=== PATIENT | female | born 1955 | race Caucasian/White ===

== ENCOUNTER 2017-06-13 10:31 | Outpatient (CLI) | payer OTHER | END 2017-06-13 10:32 | disposition home or self-care (01) | LOC: BICCT 10:31 | PROVIDERS: ATTEND Family Medicine | DX: R10.9 Unspecified abdominal pain (principal); K57.90 Diverticulosis of intestine, part unspecified, without perforation or abscess without bleeding | CPT/HCPCS: 74176 ==

== ENCOUNTER 2017-10-25 14:27 | Outpatient (CLI) | payer OTHER | END 2017-10-25 14:28 | disposition home or self-care (01) | LOC: BICMAMMO 14:27 | PROVIDERS: ATTEND Family Medicine | DX: Z12.31 Encounter for screening mammogram for malignant neoplasm of breast (principal) | CPT/HCPCS: 77063; 77067 ==

== ENCOUNTER 2018-05-19 08:51 | Outpatient (CLI) | payer OTHER ==
--- NOTE | 2018-05-19 10:34 | BD ---
DEXA BONE DENSITY: Comparison: None. History: Osteoporosis in a 62-year-old post-menopausal female. Lumbar Spine: BMD (g/cm2) L1 0.768 T-Score: -2.0 L2 0.788 T-Score: -2.2 L3 0.809 T-Score: -2.5 L4 0.862 T-Score: -1.8 L1-L4 0.810 T-Score: -2.2 Femoral Neck: 0.756 T-Score: -0.8 Total Femur: 0.823 T-Score: -0.9 Impression: Osteopenia. This patient has a 10-year WHO fracture of a major osteoporotic fracture of 7.8% and hip fracture 0.5%. POS: [facility]
== END 2018-05-19 08:52 | disposition home or self-care (01) ==
LOC: BICMAMMO 08:51
PROVIDERS: ATTEND Internal Medicine Rheumatology
DX: Z13.820 Encounter for screening for osteoporosis (principal); M81.0 Age-related osteoporosis without current pathological fracture; M85.88 Other specified disorders of bone density and structure, other site
CPT/HCPCS: 77080

== ENCOUNTER 2018-10-26 07:59 | Outpatient (CLI) | payer MEDICARE, OTHER ==
--- NOTE | 2018-10-26 09:18 | MMO ---
Bilateral MAMMO Bilat Screen [facility]. CLINICAL HISTORY: Patient is 63 years old and is seen for screening. The patient has the following family history of breast cancer: grandmother. The patient has no personal history of cancer. VIEWS: The views performed were: bilateral craniocaudal with tomosynthesis; bilateral mediolateral oblique with tomosynthesis; and bilateral exaggerated craniocaudal. FILMS COMPARED: The present examination has been compared to a prior imaging study performed at [facility] on 10/25/2017. MAMMOGRAM FINDINGS: The breasts are heterogeneously dense, which could obscure a lesion on mammography. Finding 1: There are stable benign appearing calcifications seen in both breasts. Finding 2: There is a stable biopsy clip seen in the right breast. Finding 3: There is a new global asymmetry seen in the upper-outer region of the left breast. IMPRESSION: FINDING 1: STABLE CALCIFICATIONS IN BOTH BREASTS ARE BENIGN. FINDING 2: STABLE BIOPSY CLIP IN THE RIGHT BREAST IS BENIGN. FINDING 3: NEW GLOBAL ASYMMETRY IN THE LEFT BREAST REQUIRES ADDITIONAL EVALUATION. ADDITIONAL PROJECTIONS (LEFT CRANIOCAUDAL SPOT COMPRESSION; LEFT MEDIOLATERAL OBLIQUE SPOT COMPRESSION; AND LEFT MEDIOLATERAL) ARE RECOMMENDED. AN ULTRASOUND EXAM IS RECOMMENDED IF NEEDED. ADDITIONAL IMAGING. THE RESULTS OF THIS EXAM WERE SENT TO THE PATIENT. ACR BI-RADS Category 0 - Incomplete: Need additional imaging evaluation. [facility] will notify the patient of the need for additional imaging services. MAMMOGRAPHY NOTE: 1. A negative mammogram report should not delay a biopsy if a dominant of clinically suspicious mass is present. 2. Approximately 10% to 15% of breast cancers are not detected by mammography. 3. Adenosis and dense breasts may obscure an underlying neoplasm.
== END 2018-10-26 08:00 | disposition home or self-care (01) ==
LOC: BICMAMMO 07:59
PROVIDERS: ATTEND Family Medicine
DX: Z12.31 Encounter for screening mammogram for malignant neoplasm of breast (principal); R92.0 Mammographic microcalcification found on diagnostic imaging of breast
CPT/HCPCS: 77063; 77067

== ENCOUNTER 2018-10-30 09:24 | Outpatient (CLI) | payer MEDICARE, OTHER ==
--- NOTE | 2018-10-30 14:18 | MMO ---
Left Breast MAMMO Unilat Diag [facility]ALK[facility]. CLINICAL HISTORY: Patient is 63 years old and is seen for additional evaluation requested at current screening. The patient has the following family history of breast cancer: grandmother. The patient has no personal history of cancer. VIEWS: The views performed were: left craniocaudal spot compression with tomosynthesis; left mediolateral oblique spot compression with tomosynthesis; and left mediolateral with tomosynthesis. FILMS COMPARED: The present examination has been compared to prior imaging studies performed at [facility] on 10/25/2017, 10/26/2018 and 10/30/2018. MAMMOGRAM FINDINGS: The breast is heterogeneously dense, which could obscure a lesion on mammography. There is a focal asymmetry seen in the upper-outer region of the left breast. Similar new scattered densities are present in both breasts, and the patient provides a history of hormone replacement therapy commencing in the interval since prior mammograms. Sonography of the region of mammographic concern in the left breast is normal. IMPRESSION: FOCAL ASYMMETRY IN THE LEFT BREAST IS PROBABLY BENIGN. FOLLOW-UP IN 6 MONTHS IS RECOMMENDED. THE RESULTS OF THIS EXAM WERE SENT TO THE PATIENT. ACR BI-RADS Category 3 - Probably benign finding - short interval follow-up suggested. [facility] will notify the patient of the need for additional imaging services. MAMMOGRAPHY NOTE: 1. A negative mammogram report should not delay a biopsy if a dominant of clinically suspicious mass is present. 2. Approximately 10% to 15% of breast cancers are not detected by mammography. 3. Adenosis and dense breasts may obscure an underlying neoplasm.
--- NOTE | 2018-10-30 14:41 | ULT ---
LIMITED LEFT BREAST ULTRASOUND: DATE: 10/30/2018. PROVIDED CLINICAL HISTORY: Abnormal mammogram. FINDINGS: Limited sonographic interrogation was performed of the left breast including in the presence of inter preting radiologist real-time from the 11:00 to 3:00 positions. No sonographic abnormality is eviden t in the region of mammographic concern. IMPRESSION: BIRADS category 3 - probably benign findings. Followup diagnostic left mammogram recommended in 6 mo nths. POS: OFF
== END 2018-10-30 09:25 | disposition home or self-care (01) ==
LOC: BICMAMMO 09:24
PROVIDERS: ATTEND Family Medicine
DX: R92.2 Inconclusive mammogram (principal); N64.89 Other specified disorders of breast; Z80.3 Family history of malignant neoplasm of breast
CPT/HCPCS: 76642; 77065; G0279

== ENCOUNTER 2019-05-01 08:48 | Outpatient (CLI) | payer MEDICARE, OTHER ==
--- NOTE | 2019-05-01 09:19 | MMO ---
Left Breast MAMMO Unilat Diag [facility]. CLINICAL HISTORY: Patient is 63 years old and is seen for follow-up at short-interval from prior study. The patient has the following family history of breast cancer: maternal grandmother, malignant (generic). The patient has no personal history of cancer. VIEWS: The views performed were: left craniocaudal with tomosynthesis; left mediolateral oblique with tomosynthesis; and left mediolateral with tomosynthesis. FILMS COMPARED: The present examination has been compared to prior imaging studies performed at [facility] on 10/25/2017, 10/26/2018 and 10/30/2018. This study has been interpreted with the assistance of computer-aided detection. MAMMOGRAM FINDINGS: The breast is heterogeneously dense, which could obscure a lesion on mammography. There is a stable focal asymmetry seen in the left breast. IMPRESSION: STABLE FOCAL ASYMMETRY IN THE LEFT BREAST IS PROBABLY BENIGN. FOLLOW-UP IN 6 MONTHS IS RECOMMENDED. THE RESULTS OF THIS EXAM WERE SENT TO THE PATIENT. ACR BI-RADS Category 3 - Probably benign finding - short interval follow-up suggested. [facility] will notify the patient of the need for additional imaging services. MAMMOGRAPHY NOTE: 1. A negative mammogram report should not delay a biopsy if a dominant of clinically suspicious mass is present. 2. Approximately 10% to 15% of breast cancers are not detected by mammography. 3. Adenosis and dense breasts may obscure an underlying neoplasm. Reported by: ANGEL WILBURN MD Electonically Signed: [id number]
== END 2019-05-01 08:49 | disposition home or self-care (01) ==
LOC: BICMAMMO 08:48
PROVIDERS: ATTEND Family Medicine
DX: R92.8 Other abnormal and inconclusive findings on diagnostic imaging of breast (principal); N64.89 Other specified disorders of breast
CPT/HCPCS: 77065; G0279

== ENCOUNTER 2019-10-19 08:43 | Outpatient (CLI) | payer MEDICARE ==
--- NOTE | 2019-10-19 09:17 | MMO ---
Bilateral MAMMO Bilat Diag [facility]. CLINICAL HISTORY: Patient is 64 years old and is seen for diagnostic exam. The patient has the following family history of breast cancer: maternal grandmother, malignant (generic). The patient has no personal history of cancer. VIEWS: The views performed were: bilateral craniocaudal with tomosynthesis; bilateral mediolateral oblique with tomosynthesis; and bilateral mediolateral with tomosynthesis. FILMS COMPARED: The present examination has been compared to prior imaging studies performed at [facility] on 10/26/2018, 10/30/2018 and 05/01/2019. This study has been interpreted with the assistance of computer-aided detection. MAMMOGRAM FINDINGS: The breasts are heterogeneously dense, which could obscure a lesion on mammography. Finding 1: There are stable benign appearing calcifications seen in both breasts. Finding 2: There are stable benign appearing densities seen in both breasts. There are no suspicious masses, suspicious calcifications, or new areas of architectural distortion. IMPRESSION: THERE IS NO MAMMOGRAPHIC EVIDENCE OF MALIGNANCY. A ROUTINE FOLLOW-UP MAMMOGRAM IN 1 YEAR IS RECOMMENDED. THE RESULTS OF THIS EXAM WERE SENT TO THE PATIENT. ACR BI-RADS Category 2 - Benign finding MAMMOGRAPHY NOTE: 1. A negative mammogram report should not delay a biopsy if a dominant of clinically suspicious mass is present. 2. Approximately 10% to 15% of breast cancers are not detected by mammography. 3. Adenosis and dense breasts may obscure an underlying neoplasm. Reported by: KATHERYN REYNOLDS MD Electonically Signed: [id number]
== END 2019-10-19 08:44 | disposition home or self-care (01) ==
LOC: BICMAMMO 08:43
PROVIDERS: ATTEND Family Medicine
DX: R92.8 Other abnormal and inconclusive findings on diagnostic imaging of breast (principal)
CPT/HCPCS: 77066; G0279

== ENCOUNTER 2020-10-21 08:58 | Outpatient (CLI) | payer MEDICARE | END 2020-10-21 08:59 | disposition home or self-care (01) | LOC: BICMAMMO 08:58 | PROVIDERS: ATTEND Family Medicine | DX: Z12.31 Encounter for screening mammogram for malignant neoplasm of breast (principal) | CPT/HCPCS: 77063; 77067 ==

== ENCOUNTER 2021-10-23 09:57 | Outpatient (CLI) | payer MEDICARE | END 2021-10-23 09:58 | disposition home or self-care (01) | LOC: BICMAMMO 09:57 | PROVIDERS: ATTEND Family Medicine | DX: Z12.31 Encounter for screening mammogram for malignant neoplasm of breast (principal); Z80.3 Family history of malignant neoplasm of breast | CPT/HCPCS: 77063; 77067 ==

== ENCOUNTER 2022-07-29 12:19 | Outpatient (CLI) | payer MEDICARE | END 2022-07-29 12:20 | disposition home or self-care (01) | LOC: BICCT 12:19 | PROVIDERS: ATTEND Family Medicine | DX: R91.1 Solitary pulmonary nodule (principal); J40 Bronchitis, not specified as acute or chronic; S22.42XA Multiple fractures of ribs, left side, initial encounter for closed fracture | CPT/HCPCS: 71250 ==

== ENCOUNTER 2022-09-22 10:27 | Inpatient (IN) | payer MEDICARE ==
[~2022-09-22 10:27] MED LIST: Iopamidol 370 76% 100 ML VIAL ONE
[2022-09-22] MEDS ORDERED: Ondansetron ODT 4 MG TAB PO PRN (12:02)
[2022-09-22] MEDS ORDERED: Ipratropium/Albuterol 3 ML NEB NEB PRN (12:02)
[2022-09-22] MEDS ORDERED: Ondansetron PF 4 MG/2 ML Vial IVP PRN (12:02)
[2022-09-22] MEDS ORDERED: Senokot S 8.6-50 MG TAB PO PRN (12:02)
[2022-09-22] MEDS ORDERED: Calcium Carbonate 500 MG ChewTAB PO PRN (12:02)
[2022-09-22] MEDS ORDERED: Acetaminophen 325 MG TAB PO PRN (12:02)
[2022-09-22 13:55] VITALS: BMI 24.7
[2022-09-22 14:26] LABS: #Lymphocytes 0.8 thou/uL (1.20-3.40); #Monocytes 0.8 thou/uL (0.11-0.59); #Neutrophils 4.9 thou/uL (1.40-6.50); %Basophils 0.2 % (0.0-1.0); %Eosinophils 0.4 % (0.0-10.0); %Lymphocytes 12.3 % (21.0-51.0); %Monocytes 11.6 % (0.0-10.0); %Neutrophils 75.6 % (42.0-75.0); Mean Corpuscular HGB CONC 35.1 g/dL (32.0-36.0); Mean Corpuscular Hemoglobin 36.1 pg (27.0-31.0); Mean Platelet Volume 6.5 fL (7.4-10.4); Platelet Count 262 10x3/uL (130-400); RBC Distribution Width 11.4 % (11.5-14.5); Red Blood Cell (RBC) Count 4.15 mill/uL (4.20-5.40); White Blood Cell (WBC) Count 6.5 10x3/uL (4.8-10.8)
[2022-09-22 14:38] LABS: INR-International Normal Ratio 0.9; Prothrombin Time 12.3 sec (12.0-14.7)
[2022-09-22 14:39] LABS: PTT 28.3 sec (22.9-36.1)
[2022-09-22 14:43] LABS: ALT (SGPT) 24 U/L (8-55); AST (SGOT) 21 U/L (5-34); Alkaline Phosphatase 32 U/L (40-110); Anion Gap 15 mmol/L (10-20); BUN (Urea Nitrogen) 9 mg/dL (9.8-20.1); Bilirubin, Total 0.4 mg/dL (0.2-1.2); CRP (Inflammatory) Less than 0.50 mg/dL (= or < 0.5); Calc. Creatinine Clearance 75 mL/min (70-130); Calcium 8.7 mg/dL (7.8-10.44); Carbon Dioxide 23 mmol/L (23-31); Chloride 91 mmol/L (98-107); Estimated GFR 94; Globulin 2.3 g/dL (2.4-3.5); Glucose 100 mg/dL (80-115); Magnesium 1.7 mg/dL (1.6-2.6); Potassium 4.2 mmol/L (3.5-5.1); Protein, Total 6.3 g/dL (5.8-8.1); Sodium 125 mmol/L (136-145)
[2022-09-22 14:48] LABS: Troponin I 0.012 ng/mL (< 0.028)
[2022-09-22] MEDS: Cefepime 2 GM in Sodium Chloride 0.9% 100 ML IVPB SCH (15:00)
[2022-09-22] MEDS ORDERED: Magnesium 2 GM/50 ML(in water) 2 GM in Premix Bag 1 BAG IVPB SCH (15:00)
[2022-09-22] MEDS ORDERED: hydrALAZINE 25 MG TAB PO PRN (15:16)
[2022-09-22] MEDS: methylPREDNISolone Sod Succ 40 MG VIAL IVP SCH ×2 (15:36→20:53)
[2022-09-22] MEDS: Ipratropium/Albuterol 3 ML NEB NEB SCH ×3 (16:02→22:24)
[2022-09-22 16:46] LABS: SARS-CoV-2 NAA Rapid Test Not Detected (NotDetected)
[2022-09-22] MEDS ORDERED: Electrolyte Replacement Protocol FS SCH (17:45)
[2022-09-22] MEDS: Mometasone/Formoterol 200/5 60 PUFF INH SCH (19:00)
[2022-09-22] MEDS: guaiFENesin ER 600 MG TAB PO SCH (20:52)
[2022-09-22] MEDS: Doxycycline 100 MG CAP PO SCH (20:52)
[2022-09-22] MEDS ORDERED: Famotidine 20 MG TAB PO SCH (21:00)
[2022-09-23] MEDS: Cefepime 2 GM in Sodium Chloride 0.9% 100 ML IVPB SCH (02:37)
[2022-09-23] MEDS: methylPREDNISolone Sod Succ 40 MG VIAL IVP SCH ×4 (02:37→17:31)
[2022-09-23] MEDS: Ipratropium/Albuterol 3 ML NEB NEB SCH ×6 (03:07→22:49)
[2022-09-23 07:04] LABS: #Neutrophils 4.6 thou/uL (1.40-6.50); %Eosinophils 0.1 % (0.0-10.0); %Lymphocytes 9.8 % (21.0-51.0); %Monocytes 2.4 % (0.0-10.0); %Neutrophils 87.7 % (42.0-75.0); Hemoglobin 15.6 g/dL (12.0-16.0); Mean Corpuscular HGB CONC 35.3 g/dL (32.0-36.0); Mean Corpuscular Hemoglobin 36.9 pg (27.0-31.0); Mean Platelet Volume 6.5 fL (7.4-10.4); Platelet Count 263 10x3/uL (130-400); RBC Distribution Width 11.6 % (11.5-14.5); Red Blood Cell (RBC) Count 4.22 mill/uL (4.20-5.40); White Blood Cell (WBC) Count 5.2 10x3/uL (4.8-10.8)
[2022-09-23 07:05] LABS: #Lymphocytes 0.5 thou/uL (1.20-3.40); #Monocytes 0.1 thou/uL (0.11-0.59)
[2022-09-23 07:14] LABS: Anion Gap 18 mmol/L (10-20); BUN (Urea Nitrogen) 10 mg/dL (9.8-20.1); Calc. Creatinine Clearance 71 mL/min (70-130); Calcium 8.7 mg/dL (7.8-10.44); Carbon Dioxide 21 mmol/L (23-31); Chloride 96 mmol/L (98-107); Estimated GFR 90; Glucose 183 mg/dL (80-115); Magnesium 2.1 mg/dL (1.6-2.6); Sodium 130 mmol/L (136-145)
[2022-09-23] MEDS: Mometasone/Formoterol 200/5 60 PUFF INH SCH ×2 (07:19→19:31)
[2022-09-23] MEDS ORDERED: Multivit, Therapeutic 1 TAB PO SCH (09:00)
[2022-09-23] MEDS ORDERED: Folic Acid 1 MG TAB PO SCH (09:00)
[2022-09-23] MEDS ORDERED: Cyanocobalamin (Vitamin B-12) 1,000 MCG TAB PO SCH (09:00)
[2022-09-23] MEDS ORDERED: Thiamine 100 MG TAB PO SCH (09:00)
[2022-09-23] MEDS ORDERED: Acetaminophen 325 MG TAB PO PRN (09:58)
[2022-09-23] MEDS ORDERED: Calcium Carbonate 500 MG ChewTAB PO PRN (09:58)
[2022-09-23] MEDS ORDERED: hydrALAZINE 25 MG TAB PO PRN (10:00)
[2022-09-23] MEDS ORDERED: Ondansetron PF 4 MG/2 ML Vial IVP PRN (10:02)
[2022-09-23] MEDS ORDERED: Senokot S 8.6-50 MG TAB PO PRN (10:03)
[2022-09-23] MEDS ORDERED: Ondansetron ODT 4 MG TAB PO PRN (10:03)
[2022-09-23] MEDS ORDERED: Ipratropium/Albuterol 3 ML NEB NEB SCH (10:30)
[2022-09-23] MEDS: guaiFENesin ER 600 MG TAB PO SCH ×3 (10:32→20:46)
[2022-09-23] MEDS: Cyanocobalamin (Vitamin B-12) 1,000 MCG TAB PO SCH (10:32)
[2022-09-23] MEDS: Thiamine 100 MG TAB PO SCH (10:32)
[2022-09-23] MEDS: Multivit, Therapeutic 1 TAB PO SCH (10:32)
[2022-09-23] MEDS: Folic Acid 1 MG TAB PO SCH (10:32)
[2022-09-23] MEDS: Doxycycline 100 MG CAP PO SCH ×3 (11:13→20:46)
[2022-09-23] MEDS ORDERED: Montelukast Sodium 10 mg Tablet PO SCH (21:00)
[2022-09-24] MEDS: methylPREDNISolone Sod Succ 40 MG VIAL IVP SCH ×2 (00:20→05:34)
[2022-09-24] MEDS: Ipratropium/Albuterol 3 ML NEB NEB SCH ×3 (02:22→11:04)
[2022-09-24] MEDS ORDERED: Thyroid 30 MG TAB PO SCH (06:00)
[2022-09-24] MEDS: Mometasone/Formoterol 200/5 60 PUFF INH SCH (07:02)
[2022-09-24 07:18] LABS: Anion Gap 15 mmol/L (10-20); BUN (Urea Nitrogen) 16 mg/dL (9.8-20.1); Calc. Creatinine Clearance 74 mL/min (70-130); Calcium 9.2 mg/dL (7.8-10.44); Carbon Dioxide 22 mmol/L (23-31); Chloride 95 mmol/L (98-107); Estimated GFR 94; Glucose 148 mg/dL (80-115); Potassium 4.4 mmol/L (3.5-5.1); Sodium 128 mmol/L (136-145)
[2022-09-24 08:07] VITALS: BP 126/76; TEMP 97.7
[2022-09-24] MEDS ORDERED: Escitalopram Oxalate 10 mg Tablet PO SCH (09:00)
[2022-09-24] MEDS: Doxycycline 100 MG CAP PO SCH (09:10)
[2022-09-24] MEDS: Thiamine 100 MG TAB PO SCH (09:10)
[2022-09-24] MEDS: guaiFENesin ER 600 MG TAB PO SCH (09:11)
[2022-09-24] MEDS: Folic Acid 1 MG TAB PO SCH (09:11)
[2022-09-24] MEDS: Cyanocobalamin (Vitamin B-12) 1,000 MCG TAB PO SCH (09:11)
[2022-09-24] MEDS: Multivit, Therapeutic 1 TAB PO SCH (09:11)
== END 2022-09-24 12:23 | disposition home or self-care (01) | DRG 202 ==
LOC: UNDOADMIN 10:27 → T4-A 10:27 → T4-B 12:00
PROVIDERS: ADMIT Internal Medicine; ATTEND Internal Medicine
DX: J45.901 Unspecified asthma with (acute) exacerbation (principal); E87.1 Hypo-osmolality and hyponatremia; J44.1 Chronic obstructive pulmonary disease with (acute) exacerbation; Z20.822 Contact with and (suspected) exposure to COVID-19; E03.9 Hypothyroidism, unspecified; F17.210 Nicotine dependence, cigarettes, uncomplicated; I10 Essential (primary) hypertension; M54.50 Low back pain, unspecified; G89.4 Chronic pain syndrome; Z90.710 Acquired absence of both cervix and uterus; Z88.5 Allergy status to narcotic agent; Z88.1 Allergy status to other antibiotic agents; Z90.49 Acquired absence of other specified parts of digestive tract; Z98.890 Other specified postprocedural states; Z82.49 Family history of ischemic heart disease and other diseases of the circulatory system; Z80.3 Family history of malignant neoplasm of breast; Z80.43 Family history of malignant neoplasm of testis; Z80.8 Family history of malignant neoplasm of other organs or systems
CPT/HCPCS: 36415; 71275; 80048; 80053; 83735; 83880; 83930; 83935; 84145; 84300; 84443; 84484; 85025; 85610; 85730; 86140; 87070; 87205; 93005; 93010; 94640; J0692; J1650; J2405; J2920; J3475; J3490; J7620; Q9967

== ENCOUNTER 2022-12-31 09:43 | Outpatient (CLI) | payer MEDICARE | END 2022-12-31 09:44 | disposition home or self-care (01) | LOC: BICMAMMO 09:43 | PROVIDERS: ATTEND Family Medicine | DX: Z12.31 Encounter for screening mammogram for malignant neoplasm of breast (principal); Z80.3 Family history of malignant neoplasm of breast | CPT/HCPCS: 77063; 77067 ==

== ENCOUNTER 2025-01-03 09:02 | Outpatient (CLI) | payer OTHER | END 2025-01-03 09:03 | disposition home or self-care (01) | LOC: BICMAMMO 09:02 | PROVIDERS: ATTEND Emergency Medicine | DX: Z12.31 Encounter for screening mammogram for malignant neoplasm of breast (principal); Z80.3 Family history of malignant neoplasm of breast | CPT/HCPCS: 77063; 77067 ==